=== PATIENT | female | born 1955 | race Caucasian/White ===

== ENCOUNTER 2016-12-12 17:22 | Emergency (ER) | payer MEDICARE ==
[2016-12-12] MEDS ORDERED: OPTIRAY 350 100 ML VIAL HMH IV ONE (17:23)
[2016-12-12] MEDS ORDERED: METHYLPRED SOD SUCC 125 MG/2 ML VIAL ONE (21:53)
[2016-12-12] MEDS ORDERED: DUONEB INH ONE (21:56)
[2016-12-12] MEDS ORDERED: SODIUM CHLORIDE 0.9% 1,000 ML ONE (23:08)
== END 2016-12-13 00:36 | disposition home or self-care (01) ==
LOC: ER 17:22
DX: J15.9 Unspecified bacterial pneumonia (principal)
CPT/HCPCS: 36415; 71020; 71260; 80053; 83690; 85025; 87804; 94640; 96360; 96372; 99284; J2930; Q9967; 96361